=== PATIENT | female | born 1965 | race Caucasian/White ===

== ENCOUNTER 2017-05-10 03:13 | Emergency (ER) | payer BC ==
[~2017-05-10] VITALS: Ht 157.5 cm; Wt 87.5 kg
[2017-05-10 04:09] LABS: Basophils # (auto) 0 uL; Basophils % (auto) 0.4 % (0.0-2.0); CONDITION Y; Eosinophils # (auto) 0.1 uL; Hematocrit 42.8 % (36.0-46.0); Hemoglobin 14.5 g/dL (12.2-16.2); Lymphocytes # (auto) 1.9 uL; Lymphocytes % (auto) 17.8 % (10.0-50.0); Mean Corpuscular Hemoglobin 31.9 pg (28.0-32.0); Mean Corpuscular Hgb Conc. 33.9 g/dL (32.0-36.0); Mean Corpuscular Volume 93.9 fL (80.0-100.0); Mean Platelet Volume 7.4 fL (7.4-10.4); Monocytes # (auto) 0.6 uL; Monocytes % (auto) 5.8 % (0.0-12.0); Platelet Count (auto) 349 10^3/uL (140-450); Red Cell Distribution Width 14.2 % (11.6-16.0); White Blood Cell 10.7 10^3/uL (4.4-10.8)
[2017-05-10 04:22] LABS: Urine Bilirubin Negative (Negative); Urine Blood Negative /uL (Negative); Urine Color Yellow (Yellow); Urine Glucose Normal (Normal); Urine Ketone Negative (Negative); Urine Nitrite Negative (Negative); Urine RBC <1 /hpf (0 - 4); Urine Squamous Epithelial Cell FEW /hpf (<5); Urine Urobilinogen Normal (Negative)
[2017-05-10 04:24] LABS: Albumin 3.8 g/dL (3.4-5.0); Amylase 67 U/L (25-115); Anion Gap 10 (5-15); Aspartate Aminotransferase 192 U/L (15-37); BUN/Creatinine Ratio 7.8; Blood Urea Nitrogen 8 mg/dL (7-18); Calcium 8.6 mg/dL (8.5-10.1); Carbon Dioxide 24 mmol/L (21-32); Chloride 107 mmol/L (98-107); GFR African American 73 mL/min; GFR Non-African American 61 mL/min; Glucose 110 mg/dL (74-106); Potassium 3.6 mmol/L (3.5-5.1); Sodium 141 mmol/L (136-145)
[2017-05-10 04:29] LABS: Alkaline Phosphatase 163 U/L (45-117); Bilirubin, Total 0.5 mg/dL (0.2-1.0); Total Protein 7.8 g/dL (6.4-8.2)
[2017-05-10 05:02] VITALS: BP 121/69
== END 2017-05-10 06:49 | disposition home or self-care (01) ==
LOC: ER 03:23
DX: K75.9 Inflammatory liver disease, unspecified (principal); K21.9 Gastro-esophageal reflux disease without esophagitis; E78.5 Hyperlipidemia, unspecified; Z88.1 Allergy status to other antibiotic agents; I10 Essential (primary) hypertension
CPT/HCPCS: 36415; 74176; 80053; 81001; 81025; 82150; 83690; 84484; 85025; 93005

== ENCOUNTER 2019-09-02 23:53 | Inpatient (IN) | payer BC ==
[~2019-09-02] VITALS: Ht 157.5 cm; Wt 97.9 kg
[2019-09-03] MEDS ORDERED: ONDANSETRON HCL 4 MG/2 ML VIAL IV ONE ×3 (00:45→12:55)
[2019-09-03] MEDS ORDERED: MORPHINE SULFATE 4 MG/ML SYR/VIAL IV ONE (00:45)
[2019-09-03 01:00] LABS: Basophils # (auto) 0.1 uL; Basophils % (auto) 0.9 % (0.0-2.0); Eosinophils # (auto) 0.1 uL; Eosinophils % (auto) 0.7 % (0.0-7.0); Hematocrit 41.9 % (36.0-46.0); Hemoglobin 14.5 g/dL (12.2-16.2); Lymphocytes # (auto) 1.6 uL; Lymphocytes % (auto) 11.3 % (10.0-50.0); Mean Corpuscular Hemoglobin 31.3 pg (28.0-32.0); Mean Corpuscular Hgb Conc. 34.5 g/dL (32.0-36.0); Mean Corpuscular Volume 90.8 fL (80.0-100.0); Monocytes # (auto) 0.5 uL; Monocytes % (auto) 3.9 % (0.0-12.0); Neutrophils # (auto) 11.4 uL; Neutrophils % (auto) 83.2 % (37.0-80.0); Platelet Count (auto) 301 10^3/uL (140-450); Red Blood Cells 4.62 10^6/uL (4.0-5.20); Red Cell Distribution Width 14.2 % (11.8-14.3); White Blood Cell 13.7 10^3/uL (4.4-10.8)
[2019-09-03 01:23] LABS: Albumin 3.7 g/dL (3.4-5.0); Calcium 8.6 mg/dL (8.5-10.1); Potassium 4.1 mmol/L (3.5-5.1)
[2019-09-03 01:26] LABS: Bilirubin, Total 0.2 mg/dL (0.2-1.0); Total Protein 7.9 g/dL (6.4-8.2)
[2019-09-03] MEDS ORDERED: HYDROmorphone HCL 2 MG/ML VL IV ONE (03:30)
[2019-09-03] MEDS ORDERED: cefTRIAXone 1GM/50ML D5W 50 ML IV ONE (05:30)
[2019-09-03] MEDS ORDERED: metroNIDAZOLE 500MG/100ML 100 ML IV ONE (05:30)
[2019-09-03 07:03] LABS: Urine Bacteria NONE SEEN /hpf (None Seen); Urine Blood Negative /uL (Negative); Urine Specific Gravity 1.018 (1.001-1.035); Urine WBC 1 /hpf (0 - 5)
[2019-09-03] MEDS ORDERED: DOCUSATE SOD 100 MG CAP PO PRN (07:15)
[2019-09-03] MEDS ORDERED: MORPHINE SULFATE 4 MG/ML SYR/VIAL IV PRN ×2 (07:15→16:15)
[2019-09-03] MEDS ORDERED: LORazepam 0.5 MG TAB PO PRN (07:15)
[2019-09-03] MEDS ORDERED: ONDANSETRON HCL 4 MG/2 ML VIAL IV PRN (07:15)
[2019-09-03] MEDS: D5W/SOD CHL 0.45% 1,000 ML IV SCH (07:33)
[2019-09-03 07:34] LABS: Basophils # (auto) 0.1 uL; Basophils % (auto) 0.9 % (0.0-2.0); Eosinophils # (auto) 0 uL; Eosinophils % (auto) 0.2 % (0.0-7.0); Hematocrit 42.8 % (36.0-46.0); Hemoglobin 14.6 g/dL (12.2-16.2); Lymphocytes # (auto) 1.4 uL; Lymphocytes % (auto) 9.4 % (10.0-50.0); Mean Corpuscular Hemoglobin 30.3 pg (28.0-32.0); Mean Corpuscular Hgb Conc. 34.2 g/dL (32.0-36.0); Mean Corpuscular Volume 88.7 fL (80.0-100.0); Monocytes # (auto) 0.6 uL; Monocytes % (auto) 4.1 % (0.0-12.0); Neutrophils # (auto) 12.6 uL; Neutrophils % (auto) 85.4 % (37.0-80.0); Nucleated Red Blood Cells % 0.1 %; Platelet Count (auto) 325 10^3/uL (140-450); Red Blood Cells 4.83 10^6/uL (4.0-5.20); Red Cell Distribution Width 13.8 % (11.8-14.3); White Blood Cell 14.8 10^3/uL (4.4-10.8)
[2019-09-03] MEDS ORDERED: hydrALAZINE HCL 25 MG TAB PO PRN (08:00)
[2019-09-03 08:04] LABS: Cholesterol 306 mg/dL (< 200); HDL Cholesterol 44 mg/dL (40-59); LDL Cholesterol 213 mg/dL (< 100); Triglycerides 393 mg/dL (< 150)
[2019-09-03 11:00] VITALS: BP 147/76
[2019-09-03] MEDS ORDERED: MORPHINE SULF INJ 2 MG/ML SYRINGE 1ML IV PRN (11:15)
[2019-09-03 11:41] LABS: INR 0.98 (0.9-1.15); Partial Thromboplastin Time 28.8 sec (23.64-32.05)
[2019-09-03] MEDS ORDERED: ceFAZolin 1GM/50ML 50 ML IV ONE (12:41)
[2019-09-03] MEDS ORDERED: fentaNYL CITRATE 100 MCG/2 ML VL ONE (12:50)
[2019-09-03] MEDS ORDERED: ROCURONIUM 10MG/ML 10ML VIAL IV ONE (12:51)
[2019-09-03] MEDS ORDERED: MEPERIDINE HCL (25 MG/ML) 1ML VIAL ONE (12:51)
[2019-09-03] MEDS ORDERED: MIDAZOLAM HCL 1MG/1ML-2 ML VIAL ONE (12:51)
[2019-09-03] MEDS ORDERED: PROPOFOL 10 MG/ML 20 ML IV ONE (12:51)
[2019-09-03] MEDS ORDERED: SODIUM CHLORIDE LOCK 10 ML ONE (12:51)
[2019-09-03] MEDS: metroNIDAZOLE 500MG/100ML 100 ML IV SCH ×2 (14:00→22:06)
[2019-09-03] MEDS ORDERED: hydrALAZINE HCL 25 MG TAB PO SCH (14:00)
[2019-09-03] MEDS ORDERED: GLYCOPYRROLATE 0.2 MG/ML 1ML VIAL ONE (14:25)
[2019-09-03] MEDS ORDERED: NEOSTIGMINE 1 MG/ML INJ (10mg/10ML VIAL) ONE (14:25)
[2019-09-03] MEDS ORDERED: fentaNYL CITRATE 100 MCG/2 ML VL IV PRN (16:15)
[2019-09-03] MEDS ORDERED: METOCLOPRAMIDE HCL 5MG/ml INJ 2ml VIAL IV PRN (16:15)
[2019-09-03] MEDS ORDERED: HYDROmorphone HCL 2 MG/ML VL IV PRN (16:15)
[2019-09-03 17:00] VITALS: BP 114/72
[2019-09-03 21:30] VITALS: BP 118/65
[2019-09-03] MEDS: ACETAMINOPHEN 325 MG TAB PO PRN (22:06)
[2019-09-04] MEDS: HYDROcodone-ACET 5/325MG TAB PO PRN ×2 (00:10→18:30)
[2019-09-04] MEDS ORDERED: IBUPROFEN 600 MG TAB PO ONE (01:00)
[2019-09-04] MEDS: D5W/SOD CHL 0.45% 1,000 ML IV SCH ×2 (01:51→17:15)
[2019-09-04 05:00] VITALS: BP 96/47
[2019-09-04] MEDS: metroNIDAZOLE 500MG/100ML 100 ML IV SCH ×3 (05:09→21:46)
[2019-09-04] MEDS: ACETAMINOPHEN 325 MG TAB PO PRN ×3 (05:09→21:45)
[2019-09-04 08:47] LABS: Basophils # (auto) 0 uL; Basophils % (auto) 0.5 % (0.0-2.0); Eosinophils # (auto) 0.1 uL; Eosinophils % (auto) 1.1 % (0.0-7.0); Hematocrit 35.9 % (36.0-46.0); Hemoglobin 12.2 g/dL (12.2-16.2); Lymphocytes % (auto) 25.1 % (10.0-50.0); Mean Corpuscular Hemoglobin 31.5 pg (28.0-32.0); Mean Corpuscular Volume 92.4 fL (80.0-100.0); Monocytes # (auto) 0.7 uL; Monocytes % (auto) 8.2 % (0.0-12.0); Neutrophils # (auto) 5.2 uL; Neutrophils % (auto) 65.1 % (37.0-80.0); Nucleated Red Blood Cells % 0.1 %; Platelet Count (auto) 263 10^3/uL (140-450); Red Blood Cells 3.89 10^6/uL (4.0-5.20); Red Cell Distribution Width 14.3 % (11.8-14.3)
[2019-09-04 08:58] LABS: Albumin 2.9 g/dL (3.4-5.0); Calcium 8.1 mg/dL (8.5-10.1); Potassium 3.8 mmol/L (3.5-5.1)
[2019-09-04 09:02] LABS: BUN/Creatinine Ratio 10.8; Bilirubin, Total 0.4 mg/dL (0.2-1.0); Total Protein 6.5 g/dL (6.4-8.2)
[2019-09-04] MEDS: cefTRIAXone 1GM/50ML D5W 50 ML IV SCH ×2 (09:15→17:15)
[2019-09-04 12:22] VITALS: BP 99/69
[2019-09-04] MEDS ORDERED: IBUPROFEN 400 MG TAB PO ONE (16:15)
[2019-09-04 16:57] VITALS: BP 122/72
[2019-09-04 20:00] VITALS: BP 110/68
[2019-09-05 05:00] VITALS: BP 148/71
[2019-09-05] MEDS: metroNIDAZOLE 500MG/100ML 100 ML IV SCH ×2 (05:31→14:00)
[2019-09-05] MEDS: HYDROcodone-ACET 5/325MG TAB PO PRN (05:32)
[2019-09-05 05:40] LABS: Basophils # (auto) 0 uL; Basophils % (auto) 0.7 % (0.0-2.0); Eosinophils # (auto) 0.2 uL; Eosinophils % (auto) 2.5 % (0.0-7.0); Hematocrit 36.9 % (36.0-46.0); Lymphocytes # (auto) 1.4 uL; Lymphocytes % (auto) 19.9 % (10.0-50.0); Mean Corpuscular Hemoglobin 31.8 pg (28.0-32.0); Mean Corpuscular Hgb Conc. 35.4 g/dL (32.0-36.0); Monocytes # (auto) 0.5 uL; Monocytes % (auto) 7.4 % (0.0-12.0); Neutrophils % (auto) 69.5 % (37.0-80.0); Nucleated Red Blood Cells % 0.1 %; Platelet Count (auto) 262 10^3/uL (140-450); Red Blood Cells 4.09 10^6/uL (4.0-5.20); Red Cell Distribution Width 14.3 % (11.8-14.3); White Blood Cell 7.3 10^3/uL (4.4-10.8)
[2019-09-05] MEDS: ACETAMINOPHEN 325 MG TAB PO PRN (05:47)
[2019-09-05 05:54] LABS: Potassium 3.5 mmol/L (3.5-5.1)
[2019-09-05 05:58] LABS: BUN/Creatinine Ratio 7.4; Calcium 8.5 mg/dL (8.5-10.1)
[2019-09-05 09:00] VITALS: BP 123/74
[2019-09-05] MEDS: cefTRIAXone 1GM/50ML D5W 50 ML IV SCH (09:45)
[2019-09-05] MEDS ORDERED: ACETAMINOPHEN/CODEINE#3 (300/30mg) TAB PO ONE (11:15)
[2019-09-05] MEDS ORDERED: VENLAFAXINE HCL 37.5MG TABLET PO ONE (11:15)
[2019-09-05] MEDS ORDERED: PANTOPRAZOLE 40 MG TAB PO ONE (14:30)
[2019-09-05 15:39] VITALS: BP 123/74
== END 2019-09-05 16:58 | disposition home or self-care (01) | DRG 419 ==
LOC: ER 23:54 → OVERFLOW 23:55 → CENTRAL 09-03 10:57
PROVIDERS: ADMIT Hospitalist; ATTEND Internal Medicine Nephrology
PROC: 0FT44ZZ Resection of Gallbladder, Percutaneous Endoscopic Approach (ICD-10-PCS; principal; 2019-09-03 13:41)
DX: K80.12 Calculus of gallbladder with acute and chronic cholecystitis without obstruction (principal); D72.823 Leukemoid reaction; E66.01 Morbid (severe) obesity due to excess calories; I10 Essential (primary) hypertension; K57.30 Diverticulosis of large intestine without perforation or abscess without bleeding; K76.0 Fatty (change of) liver, not elsewhere classified; F32.9 Major depressive disorder, single episode, unspecified; F41.9 Anxiety disorder, unspecified; K21.9 Gastro-esophageal reflux disease without esophagitis; R50.82 Postprocedural fever; Z88.1 Allergy status to other antibiotic agents; Z79.899 Other long term (current) drug therapy; Z68.39 Body mass index [BMI] 39.0-39.9, adult
CPT/HCPCS: 36415; 74176; 76705; 80048; 80053; 80061; 81001; 82247; 84484; 85025; 85610; 85730; 86850; 86900; 86901; 93005; 96365; 96375; G0378; J0690; J0696; J2250; J2405; J2704; J3490